=== PATIENT | male | born 1970 | race Caucasian/White ===

== ENCOUNTER 2018-02-07 16:34 | Emergency (ER) | payer MEDICAID ==
[~2018-02-07] VITALS: Ht 170.2 cm; Wt 85.0 kg
[2018-02-07] MEDS ORDERED: OXYCODONE HCL/ACETAMINOPHEN 5/325MG TABLET PO ONE (18:45)
[2018-02-07] MEDS ORDERED: VISCOUS LIDOCAINE 2% 15 ML UDC MM ONE (18:45)
[2018-02-07 19:10] LABS: BASOPHILS % 1.2 % (0.0-2.0); EOSINOPHILS % 2.1 % (0.0-5.0); HEMATOCRIT. 44.4 % (42.0-52.0); LYMPHOCYTES % 29.1 % (20.0-50.0); MEAN CORPUSCULAR VOLUME 82.9 fL (80.0-94.0); MEAN PLATELET VOLUME 7.7 fl (7.4-10.4); MONOCYTES % 7.5 % (2.0-8.0); NEUTROPHILS % 60.1 % (40.0-76.0); PLATELET 189 x1000/uL (130-400); RED BLOOD CELL COUNT 5.35 mill/uL (4.7-6.1); RED CELL DISTRIBUTION WIDTH 14.6 % (11.6-14.6)
[2018-02-07 19:14] LABS: CHLORIDE 104 mEq/L (98-107)
[2018-02-08 01:39] LABS: CLARITY URINE CLOUDY (CLEAR); COLOR URINE YELLOW (YELLOW); KETONES URINE NEGATIVE (NEGATIVE); LEUKOCYTE ESTERASE URINE 1+ (NEGATIVE); NITRITE URINE POSITIVE (NEGATIVE); OCCULT BLOOD URINE 3+ (NEGATIVE); PH URINE 5.5 (4.5-8.0); PROTEIN URINE 2+ (NEGATIVE); SPECIFIC GRAVITY URINE 1.042 (1.005-1.030); UROBILINOGEN URINE 0.2 E.U./dL (0.2-1.0)
[2018-02-08] MEDS ORDERED: NITROFURANTOIN 100MG M/M CAPSULE PO SCH (02:13)
[2018-02-08 08:05] VITALS: BP 123/79
== END 2018-02-08 08:43 | disposition home or self-care (01) ==
LOC: ER 17:12
DX: N34.2 Other urethritis (principal); J45.909 Unspecified asthma, uncomplicated; E11.9 Type 2 diabetes mellitus without complications; G82.20 Paraplegia, unspecified; Z88.8 Allergy status to other drugs, medicaments and biological substances
CPT/HCPCS: 36415; 51702; 80048; 81003; 82962; 85025; 87077; 87086; 87186; 99284; A4315

== ENCOUNTER 2018-02-09 12:56 | Emergency (ER) | payer MEDICAID ==
[~2018-02-09] VITALS: Ht 165.1 cm; Wt 102.0 kg
[2018-02-09] MEDS ORDERED: HYDROCODONE/ACETAMINOPHEN 5/325MG TABLET PO ONE (14:45)
[2018-02-10 07:05] VITALS: BP 129/78
== END 2018-02-10 07:20 | disposition home or self-care (01) ==
LOC: ER 13:46
DX: T83.018A Breakdown (mechanical) of other urinary catheter, initial encounter (principal); N99.522 Malfunction of incontinent external stoma of urinary tract; Y82.8 Other medical devices associated with adverse incidents; Y92.9 Unspecified place or not applicable; J45.909 Unspecified asthma, uncomplicated; Z72.0 Tobacco use
CPT/HCPCS: 51702; 99284; A4217; Z7610

== ENCOUNTER 2018-09-03 14:31 | Inpatient (IN) | payer MEDICAID ==
[~2018-09-03] VITALS: Ht 180.3 cm; Wt 81.6 kg
[2018-09-03] MEDS ORDERED: SODIUM CHLORIDE 0.9% 1,000 ML IV ONE ×2 (15:06→16:00)
[2018-09-03] MEDS ORDERED: KETOROLAC 30MG/ML VIAL IV STA (15:06)
[2018-09-03 15:50] LABS: BASOPHILS % 0.7 % (0.0-2.0); EOSINOPHILS % 2.3 % (0.0-5.0); HEMATOCRIT. 42.8 % (42.0-52.0); LYMPHOCYTES % 24.6 % (20.0-50.0); MEAN CORPUSCULAR HEMOGLOBIN 28.3 pg (28.0-32.0); MEAN CORPUSCULAR VOLUME 86.5 fL (80.0-94.0); MEAN PLATELET VOLUME 8.4 fl (7.4-10.4); MONOCYTES % 8.4 % (2.0-8.0); PLATELET 179 x1000/uL (130-400); RED BLOOD CELL COUNT 4.95 mill/uL (4.7-6.1); RED CELL DISTRIBUTION WIDTH 13.5 % (11.6-14.6)
[2018-09-03 15:53] LABS: CHLORIDE 96 mEq/L (98-107)
[2018-09-03 16:00] LABS: BETA HYDROXYBUTYRATE 0.1 mMol/L (0.0-0.3)
[2018-09-03] MEDS ORDERED: INSULIN REGULAR (HUMULIN R) 300UNITS/3ML SUBCUT ONE ×2 (16:15→20:45)
[2018-09-03] MEDS ORDERED: HYDROCODONE/ACETAMINOPHEN 5/325MG TABLET PO ONE (16:30)
[2018-09-03] MEDS ORDERED: CEFTRIAXONE 1 G PREMIX 50 ML IV ONE (16:45)
[2018-09-03 17:20] LABS: CLARITY URINE TURBID (CLEAR); COLOR URINE YELLOW (YELLOW); KETONES URINE NEGATIVE (NEGATIVE); LEUKOCYTE ESTERASE URINE 2+ (NEGATIVE); NITRITE URINE POSITIVE (NEGATIVE); OCCULT BLOOD URINE 2+ (NEGATIVE); PH URINE 6.5 (4.5-8.0); PROTEIN URINE NEGATIVE (NEGATIVE); SPECIFIC GRAVITY URINE 1.035 (1.005-1.030); UROBILINOGEN URINE 0.2 E.U./dL (0.2-1.0)
[2018-09-03] MEDS ORDERED: DEXTROSE 50% WATER 50ML SYRINGE IV PRN (18:00)
[2018-09-03] MEDS ORDERED: ACETAMINOPHEN 325MG TABLET PO PRN (18:00)
[2018-09-03] MEDS ORDERED: HYDROCODONE/ACETAMINOPHEN 5/325MG TABLET PO PRN (18:00)
[2018-09-03] MEDS ORDERED: ONDANSETRON HCL 4MG/2ML INJ IV PRN (18:00)
[2018-09-03] MEDS: BLOOD SUGAR DIAGNOSTIC STRIP TEST SCH (21:00)
[2018-09-03 22:50] VITALS: BP 131/80
[2018-09-03] MEDS: GABAPENTIN 300MG CAPSULE PO SCH (23:00)
[2018-09-04] VITALS: BP 131/80
[2018-09-04] MEDS ORDERED: CEFTRIAXONE 1 G PREMIX 50 ML IV SCH
[2018-09-04] MEDS: SODIUM CHLORIDE 0.45% 1,000 ML IV SCH ×3 (00:10→21:22)
[2018-09-04 04:00] VITALS: BP 129/81
[2018-09-04] MEDS: INSULIN GLARGINE UD 100 UNITS/ML SYR SUBCUT SCH ×3 (06:30→22:18)
[2018-09-04] MEDS: BLOOD SUGAR DIAGNOSTIC STRIP TEST SCH ×4 (06:35→21:00)
[2018-09-04] MEDS: GABAPENTIN 300MG CAPSULE PO SCH ×3 (06:42→21:20)
[2018-09-04] MEDS: INSULIN LISPRO 100 UNITS/ML SUBCUT SCH ×6 (07:50→21:42)
[2018-09-04 08:00] VITALS: BP 119/65
[2018-09-04 16:52] LABS: BASOPHILS % 0.7 % (0.0-2.0); HEMATOCRIT. 43.5 % (42.0-52.0); HEMOGLOBIN. 14.3 g/dL (14.0-18.0); LYMPHOCYTES % 24.8 % (20.0-50.0); MEAN CORPUSCULAR VOLUME 85.5 fL (80.0-94.0); MEAN PLATELET VOLUME 8.4 fl (7.4-10.4); MONOCYTES % 7.7 % (2.0-8.0); NEUTROPHILS % 63.8 % (40.0-76.0); PLATELET 209 x1000/uL (130-400); RED BLOOD CELL COUNT 5.09 mill/uL (4.7-6.1); RED CELL DISTRIBUTION WIDTH 13.9 % (11.6-14.6)
[2018-09-04 16:57] LABS: CHLORIDE 105 mEq/L (98-107)
[2018-09-04] MEDS ORDERED: INSULIN LISPRO 100 UNITS/ML SUBCUT NR (17:30)
[2018-09-04 20:00] VITALS: BP 146/82
[2018-09-04] MEDS: CEFTRIAXONE 1 G PREMIX 50 ML IV SCH (23:31)
[2018-09-05] VITALS: BP 139/81
[2018-09-05] MEDS ORDERED: CEFTRIAXONE 1 G PREMIX 50 ML IV SCH ×2
[2018-09-05 04:00] VITALS: BP 141/86
[2018-09-05] MEDS: BLOOD SUGAR DIAGNOSTIC STRIP TEST SCH ×4 (07:20→21:00)
[2018-09-05] MEDS: INSULIN LISPRO 100 UNITS/ML SUBCUT SCH ×7 (07:20→23:50)
[2018-09-05] MEDS: GABAPENTIN 300MG CAPSULE PO SCH ×3 (07:26→21:25)
[2018-09-05 08:00] VITALS: BP 118/80
[2018-09-05] MEDS ORDERED: INSULIN GLARGINE UD 100 UNITS/ML SYR SUBCUT SCH (10:00)
[2018-09-05 12:00] VITALS: BP 130/79
[2018-09-05] MEDS: LACTOBACILLUS GG CAPSULE PO SCH (12:30)
[2018-09-05] MEDS ORDERED: INSULIN LISPRO 100 UNITS/ML SUBCUT NR (12:30)
[2018-09-05] MEDS ORDERED: INSULIN GLARGINE UD 100 UNITS/ML SYR SUBCUT NR (14:00)
[2018-09-05 16:00] VITALS: BP 148/88
[2018-09-05] MEDS: AMOXICILLIN 500 MG CAPSULE PO SCH ×2 (17:20→21:25)
[2018-09-05] MEDS: SODIUM CHLORIDE 0.45% 1,000 ML IV SCH (18:57)
[2018-09-05 20:00] VITALS: BP 153/96
[2018-09-05] MEDS: CEFTRIAXONE 1 G PREMIX 50 ML IV SCH (23:03)
[2018-09-05] MEDS: INSULIN GLARGINE UD 100 UNITS/ML SYR SUBCUT SCH (23:52)
[2018-09-06] VITALS: BP 109/49
[2018-09-06 04:00] VITALS: BP 137/89
[2018-09-06] MEDS: SODIUM CHLORIDE 0.45% 1,000 ML IV SCH (04:20)
[2018-09-06] MEDS: GABAPENTIN 300MG CAPSULE PO SCH ×3 (05:05→21:56)
[2018-09-06] MEDS: AMOXICILLIN 500 MG CAPSULE PO SCH ×3 (05:05→21:56)
[2018-09-06 05:44] LABS: BASOPHILS % 0.7 % (0.0-2.0); EOSINOPHILS % 2.8 % (0.0-5.0); HEMATOCRIT. 45.1 % (42.0-52.0); HEMOGLOBIN. 14.8 g/dL (14.0-18.0); MEAN CORPUSCULAR HEMOGLOBIN 28.1 pg (28.0-32.0); MEAN CORPUSCULAR VOLUME 85.6 fL (80.0-94.0); MEAN PLATELET VOLUME 7.9 fl (7.4-10.4); MONOCYTES % 8.4 % (2.0-8.0); NEUTROPHILS % 59.1 % (40.0-76.0); PLATELET 222 x1000/uL (130-400); RED BLOOD CELL COUNT 5.26 mill/uL (4.7-6.1); RED CELL DISTRIBUTION WIDTH 13.9 % (11.6-14.6)
[2018-09-06 05:55] LABS: CHLORIDE 104 mEq/L (98-107)
[2018-09-06] MEDS: BLOOD SUGAR DIAGNOSTIC STRIP TEST SCH ×4 (07:42→21:17)
[2018-09-06 08:00] VITALS: BP 145/85
[2018-09-06] MEDS: LACTOBACILLUS GG CAPSULE PO SCH (08:35)
[2018-09-06] MEDS: INSULIN LISPRO 100 UNITS/ML SUBCUT SCH ×7 (08:45→21:41)
[2018-09-06] MEDS: INSULIN GLARGINE UD 100 UNITS/ML SYR SUBCUT SCH ×2 (10:00→21:57)
[2018-09-06 12:00] VITALS: BP 140/80
[2018-09-06 20:00] VITALS: BP 136/85
[2018-09-06] MEDS: CEFTRIAXONE 1 G PREMIX 50 ML IV SCH (23:37)
[2018-09-07] MEDS: GABAPENTIN 300MG CAPSULE PO SCH ×3 (05:21→21:01)
[2018-09-07] MEDS: AMOXICILLIN 500 MG CAPSULE PO SCH ×3 (05:21→21:01)
[2018-09-07] MEDS: BLOOD SUGAR DIAGNOSTIC STRIP TEST SCH ×4 (06:41→20:10)
[2018-09-07] MEDS: INSULIN LISPRO 100 UNITS/ML SUBCUT SCH ×7 (06:42→20:13)
[2018-09-07 08:00] VITALS: BP 129/77
[2018-09-07] MEDS: LACTOBACILLUS GG CAPSULE PO SCH ×2 (08:40→08:54)
[2018-09-07] MEDS: INSULIN GLARGINE UD 100 UNITS/ML SYR SUBCUT SCH ×2 (11:07→21:00)
[2018-09-07 12:00] VITALS: BP 105/68
[2018-09-07] MEDS ORDERED: SODIUM BICARBONATE 4% (2.4MEQ) 5ML VIAL IV ONE (13:29)
[2018-09-07] MEDS ORDERED: LIDOCAINE HCL 1% 20ML VIAL (Pyxis) INJ ONE (13:29)
[2018-09-07 16:00] VITALS: BP 127/86
[2018-09-07] MEDS: HALOPERIDOL 2MG TABLET PO SCH (17:19)
[2018-09-07 17:45] LABS: CHLORIDE 101 mEq/L (98-107)
[2018-09-07 17:53] LABS: BASOPHILS % 0.6 % (0.0-2.0); EOSINOPHILS % 3.2 % (0.0-5.0); HEMATOCRIT. 45.5 % (42.0-52.0); HEMOGLOBIN. 15.2 g/dL (14.0-18.0); LYMPHOCYTES % 27.4 % (20.0-50.0); MEAN CORPUSCULAR HEMOGLOBIN 28.2 pg (28.0-32.0); MEAN CORPUSCULAR VOLUME 84.7 fL (80.0-94.0); MEAN PLATELET VOLUME 8.8 fl (7.4-10.4); MONOCYTES % 9.7 % (2.0-8.0); NEUTROPHILS % 59.1 % (40.0-76.0); PLATELET 236 x1000/uL (130-400); RED BLOOD CELL COUNT 5.37 mill/uL (4.7-6.1); RED CELL DISTRIBUTION WIDTH 13.7 % (11.6-14.6)
[2018-09-07] MEDS ORDERED: D AM PO ×2 (19:11→19:13)
[2018-09-08] MEDS: CEFTRIAXONE 1 G PREMIX 50 ML IV SCH
[2018-09-08] MEDS: AMOXICILLIN 500 MG CAPSULE PO SCH ×3 (05:18→21:00)
[2018-09-08] MEDS: GABAPENTIN 300MG CAPSULE PO SCH ×3 (05:18→21:00)
[2018-09-08] MEDS: HALOPERIDOL 2MG TABLET PO SCH ×2 (05:18→17:43)
[2018-09-08] MEDS: BLOOD SUGAR DIAGNOSTIC STRIP TEST SCH ×4 (06:38→20:45)
[2018-09-08] MEDS: INSULIN LISPRO 100 UNITS/ML SUBCUT SCH ×8 (06:44→21:10)
[2018-09-08 08:00] VITALS: BP 98/72
[2018-09-08] MEDS: LACTOBACILLUS GG CAPSULE PO SCH (08:51)
[2018-09-08] MEDS: INSULIN GLARGINE UD 100 UNITS/ML SYR SUBCUT SCH ×2 (11:09→21:10)
[2018-09-08] MEDS ORDERED: INSULIN LISPRO 100 UNITS/ML SUBCUT NR (12:45)
[2018-09-08 12:56] VITALS: BP 111/70
[2018-09-08] MEDS ORDERED: LIDOCAINE HCL 1% 20ML VIAL (Pyxis) INJ ONE (13:57)
[2018-09-08 16:00] VITALS: BP 117/85
[2018-09-08 18:15] LABS: BASOPHILS % 0.7 % (0.0-2.0); EOSINOPHILS % 3.2 % (0.0-5.0); HEMATOCRIT. 57.7 % (42.0-52.0); HEMOGLOBIN. 19.2 g/dL (14.0-18.0); LYMPHOCYTES % 27.7 % (20.0-50.0); MEAN CORPUSCULAR HEMOGLOBIN 28.3 pg (28.0-32.0); MEAN PLATELET VOLUME 8.3 fl (7.4-10.4); MONOCYTES % 8.4 % (2.0-8.0); PLATELET 130 x1000/uL (130-400); RED BLOOD CELL COUNT 6.79 mill/uL (4.7-6.1); RED CELL DISTRIBUTION WIDTH 14.1 % (11.6-14.6)
[2018-09-08 18:17] LABS: CHLORIDE 100 mEq/L (98-107)
[2018-09-08] MEDS: MORPHINE SULFATE 4 MG/ML CPJ (NOT FOR IM USE) IV PRN (18:42)
[2018-09-08 20:00] VITALS: BP 109/55
[2018-09-09] VITALS: BP 114/69
[2018-09-09] MEDS: MORPHINE SULFATE 4 MG/ML CPJ (NOT FOR IM USE) IV PRN ×2 (00:57→06:45)
[2018-09-09 04:00] VITALS: BP 118/63
[2018-09-09] MEDS: GABAPENTIN 300MG CAPSULE PO SCH ×2 (06:21→17:09)
[2018-09-09] MEDS: HALOPERIDOL 2MG TABLET PO SCH (06:21)
[2018-09-09] MEDS: AMOXICILLIN 500 MG CAPSULE PO SCH ×2 (06:21→17:09)
[2018-09-09] MEDS: BLOOD SUGAR DIAGNOSTIC STRIP TEST SCH ×2 (06:44→13:00)
[2018-09-09 06:45] VITALS: BP 109/65
[2018-09-09] MEDS: INSULIN LISPRO 100 UNITS/ML SUBCUT SCH ×6 (06:48→17:13)
[2018-09-09] MEDS: LACTOBACILLUS GG CAPSULE PO SCH (09:13)
[2018-09-09] MEDS: INSULIN GLARGINE UD 100 UNITS/ML SYR SUBCUT SCH (10:37)
[2018-09-09 10:43] LABS: BASOPHILS % 0.8 % (0.0-2.0); EOSINOPHILS % 2.8 % (0.0-5.0); LYMPHOCYTES % 28.8 % (20.0-50.0); MEAN CORPUSCULAR HEMOGLOBIN 27.9 pg (28.0-32.0); MEAN CORPUSCULAR VOLUME 85.9 fL (80.0-94.0); MEAN PLATELET VOLUME 8.6 fl (7.4-10.4); MONOCYTES % 9.3 % (2.0-8.0); NEUTROPHILS % 58.3 % (40.0-76.0); RED CELL DISTRIBUTION WIDTH 13.8 % (11.6-14.6)
[2018-09-09 10:45] LABS: HEMATOCRIT. 44.7 % (42.0-52.0); HEMOGLOBIN. 14.5 g/dL (14.0-18.0); PLATELET 224 x1000/uL (130-400)
[2018-09-09 11:18] LABS: CHLORIDE 105 mEq/L (98-107)
[2018-09-09] MEDS ORDERED: ENOXAPARIN 40MG/0.4ML SYR SUBCUT SCH (21:00)
== END 2018-09-09 19:35 | disposition home or self-care (01) | DRG 466 ==
LOC: ER 14:31 → 6EST 16:40 → EDBEDREQ 16:45 → ENRESERV 19:41
PROVIDERS: ADMIT Internal Medicine; ATTEND Internal Medicine
PROC: 02HV33Z Insertion of Infusion Device into Superior Vena Cava, Percutaneous Approach (ICD-10-PCS; principal; 2018-09-08)
PROC: B5181ZA Fluoroscopy of Superior Vena Cava using Low Osmolar Contrast, Guidance (ICD-10-PCS; 2018-09-08)
PROC: B548ZZA Ultrasonography of Superior Vena Cava, Guidance (ICD-10-PCS; 2018-09-08)
DX: T83.510A Infection and inflammatory reaction due to cystostomy catheter, initial encounter (principal); E11.42 Type 2 diabetes mellitus with diabetic polyneuropathy; E44.0 Moderate protein-calorie malnutrition; E11.65 Type 2 diabetes mellitus with hyperglycemia; E87.8 Other disorders of electrolyte and fluid balance, not elsewhere classified; E87.1 Hypo-osmolality and hyponatremia; K31.84 Gastroparesis; F15.90 Other stimulant use, unspecified, uncomplicated; K02.9 Dental caries, unspecified; Z79.4 Long term (current) use of insulin; Z91.14 Patient's other noncompliance with medication regimen; Z99.3 Dependence on wheelchair; F41.9 Anxiety disorder, unspecified; J44.9 Chronic obstructive pulmonary disease, unspecified; N39.0 Urinary tract infection, site not specified; E11.43 Type 2 diabetes mellitus with diabetic autonomic (poly)neuropathy; Y83.8 Other surgical procedures as the cause of abnormal reaction of the patient, or of later complication, without mention of misadventure at the time of the procedure; Y92.89 Other specified places as the place of occurrence of the external cause; Z68.25 Body mass index [BMI] 25.0-25.9, adult
CPT/HCPCS: 36415; 36569; 71045; 76937; 77001; 80048; 82010; 82962; 87077; 87186; 93005; 93970; 96361; 96365; 96375; 97162; 97166; 97530; 99285; A6261; C1725; C1893; J0696; J1815; J2270; J3490; J7030